=== PATIENT | female | born 1940 | race Hispanic/Latino ===

== ENCOUNTER → 2019-04-06 | Outpatient (CLI) | payer MEDICARE | END | disposition home or self-care (01) | LOC: SHCH 11:26 | PROVIDERS: ATTEND Internal Medicine Cardiovascular Disease | DX: I73.9 Peripheral vascular disease, unspecified (principal) | CPT/HCPCS: 93925 ==

== ENCOUNTER 2019-06-28 10:06 | Emergency (ER) | payer MEDICARE ==
[2019-06-28] MEDS ORDERED: TETANUS/DIPHTHERIA TOXOID [ADULT] 0.5 ML VIAL IM ONE (10:20)
[2019-06-28] MEDS ORDERED: LIDOCAINE 1%-EPI 1:100,000 20 ML VIAL IJ ONE (10:42)
[2019-06-28 10:49] LABS: BASOPHILS % (AUTO) 0.5 % (0.0-5.0); EOSINOPHILS % (AUTO) 1.8 % (0.0-8.0); HEMATOCRIT 36.8 % (36-48); LYMPHOCYTES % (AUTO) 19.5 % (21.0-51.0); MEAN CORPUSCULAR HEMOGLOBIN 27.5 pg (27.0-33.0); MEAN CORPUSCULAR HGB CONC 28.8 g/dL (32.0-36.0); MEAN CORPUSCULAR VOLUME 95.6 fL (79-99); MONOCYTES % (AUTO) 10.1 % (3.0-13.0); NEUTROPHILS % (AUTO) 67.8 % (40.0-77.0); PLATELET COUNT (AUTO) 165 K/uL (130-400); RED BLOOD CELL COUNT(AUTO) 3.85 MIL/uL (4.00-5.50); RED CELL DISTRIBUTION WIDTH 14.1 % (11.0-15.5); WHITE BLOOD COUNT (AUTO) 6.1 K/uL (4.8-10.8)
[2019-06-28] MEDS ORDERED: ACETAMINOPHEN 325 MG TAB ONE (10:53)
[2019-06-28] MEDS ORDERED: L.E.T. GEL 4%/0.5%/0.18% 3ML 3 ML/SYR SYG TP ONE (10:53)
[2019-06-28 11:03] LABS: CREATININE 1.1 mg/dL (0.5-1.5)
== END 2019-06-28 12:55 | disposition home or self-care (01) ==
LOC: EDH 10:06
DX: S01.81XA Laceration without foreign body of other part of head, initial encounter (principal); S43.401A Unspecified sprain of right shoulder joint, initial encounter; E11.9 Type 2 diabetes mellitus without complications; I10 Essential (primary) hypertension; E78.00 Pure hypercholesterolemia, unspecified; Z90.49 Acquired absence of other specified parts of digestive tract; Z90.710 Acquired absence of both cervix and uterus; Z98.890 Other specified postprocedural states; Z88.6 Allergy status to analgesic agent; W18.2XXA Fall in (into) shower or empty bathtub, initial encounter; Y93.01 Activity, walking, marching and hiking; Y92.098 Other place in other non-institutional residence as the place of occurrence of the external cause; Y99.8 Other external cause status
CPT/HCPCS: 12051; 36415; 70450; 72125; 73030; 80048; 85025; 90471; 90714; 93005; 99285; J3490

== ENCOUNTER → 2020-04-07 | Outpatient (CLI) | payer OTHER, MEDICARE | END | disposition home or self-care (01) | LOC: SHCH 12:47 | PROVIDERS: ATTEND Internal Medicine Cardiovascular Disease | DX: I65.23 Occlusion and stenosis of bilateral carotid arteries (principal); R09.89 Other specified symptoms and signs involving the circulatory and respiratory systems | CPT/HCPCS: 93880 ==

== ENCOUNTER → 2020-11-14 | Outpatient (CLI) | payer OTHER, MEDICARE ==
[~2020-11-14] MED LIST: IOHEXOL 350 MG/ML 100ML INFUS..BTL IV ONE
== END | disposition home or self-care (01) ==
LOC: RAH 07:53
PROVIDERS: ATTEND Internal Medicine Cardiovascular Disease
DX: I87.2 Venous insufficiency (chronic) (peripheral) (principal); I73.9 Peripheral vascular disease, unspecified; I87.1 Compression of vein; I51.7 Cardiomegaly; M71.22 Synovial cyst of popliteal space [Baker], left knee; M71.21 Synovial cyst of popliteal space [Baker], right knee; N83.292 Other ovarian cyst, left side
CPT/HCPCS: 75635; Q9967

== ENCOUNTER → 2020-12-14 | Outpatient (CLI) | payer OTHER, MEDICARE | END | disposition home or self-care (01) | LOC: SHCH 12:48 | PROVIDERS: ATTEND Internal Medicine Cardiovascular Disease | DX: I08.8 Other rheumatic multiple valve diseases (principal); E11.9 Type 2 diabetes mellitus without complications; E78.5 Hyperlipidemia, unspecified; E66.9 Obesity, unspecified; R55 Syncope and collapse | CPT/HCPCS: 93306; 93356 ==

== ENCOUNTER 2021-05-18 15:08 | Observation (INO) | payer OTHER, MEDICARE ==
[~2021-05-18] VITALS: Ht 149.9 cm; Wt 83.1 kg
[2021-05-18 16:17] LABS: BASOPHILS % (AUTO) 0.9 % (0.0-5.0); EOSINOPHILS % (AUTO) 1.3 % (0.0-8.0); HEMATOCRIT 30.3 % (36-48); LYMPHOCYTES % (AUTO) 6.3 % (21.0-51.0); MEAN CORPUSCULAR HEMOGLOBIN 29.8 pg (27.0-33.0); MEAN CORPUSCULAR HGB CONC 31.7 g/dL (32.0-36.0); MEAN CORPUSCULAR VOLUME 94.1 fL (79-99); MONOCYTES % (AUTO) 6.7 % (3.0-13.0); NEUTROPHILS % (AUTO) 83.5 % (40.0-77.0); PLATELET COUNT (AUTO) 289 K/uL (130-400); RED BLOOD CELL COUNT(AUTO) 3.22 MIL/uL (4.00-5.50); RED CELL DISTRIBUTION WIDTH 16.3 % (11.0-15.5); WHITE BLOOD COUNT (AUTO) 10.5 K/uL (4.8-10.8)
[2021-05-18 16:30] LABS: INR 1.37 (0.85-1.15); PROTHROMBIN TIME 14.5 SEC (9.6-11.6)
[2021-05-18 16:31] LABS: PARTIAL THROMBOPLASTIN TIME 28.5 SEC (26.3-35.5)
[2021-05-18 16:34] LABS: ALBUMIN 2.5 g/dL (3.5-5.0); BILIRUBIN,TOTAL 1.2 mg/dL (0.2-1.0); CREATININE 1.8 mg/dL (0.5-1.5); TOTAL PROTEIN, SERUM 6.2 g/dL (6.0-8.3)
[2021-05-18 16:42] LABS: POTASSIUM 2.8 mmol/L (3.5-5.1)
[2021-05-18 16:42] LABS: APPEARANCE,URINE Clear (CLEAR); BILIRUBIN,URINE Negative (NEGATIVE); COLOR,URINE Yellow (YELLOW); GLUCOSE, URINE (UA) Negative (NEGATIVE); KETONES,URINE Negative (NEGATIVE); LEUKOCYTE ESTERASE ,URINE Trace (NEGATIVE); NITRATE,URINE Negative (NEGATIVE); OCCULT BLOOD,URINE Negative (NEGATIVE); PROTEIN,URINE Trace mg/dL (NEGATIVE); UROBILINOGEN,URINE 0.2 mg/dL (0.2-1.0)
[2021-05-18] MEDS ORDERED: POTASSIUM BICARB/CIT AC 25 MEQ TABLET.EFF PO ONE (17:00)
[2021-05-18 17:09] LABS: BACTERIA,URINE Few /HPF (None Seen); RBC,URINE 0-1 /HPF (0-1)
[2021-05-18 17:10] LABS: SQUAMOUS EPITHELIAL CELL,UR Rare /HPF (0-2)
[2021-05-18 17:11] LABS: MUCUS,URINE Rare LPF (None Seen)
[2021-05-18] MEDS ORDERED: POTASSIUM BICARB/CIT AC 25 MEQ TABLET.EFF ONE (17:16)
[2021-05-18] MEDS ORDERED: DILTIAZEM 25MG INJ IVP SCH (18:00)
[2021-05-18] MEDS ORDERED: CEFTRIAXONE 1G VIAL IVP ONE (18:00)
[2021-05-18] MEDS ORDERED: AMIO200T68 PO (18:18)
[2021-05-18] MEDS ORDERED: FOLI0.8T3 PO (18:19)
[2021-05-18] MEDS ORDERED: METO-409 PO (18:19)
[2021-05-18] MEDS ORDERED: FOLI0.8T22 PO ×2 (18:19→18:20)
[2021-05-18] MEDS ORDERED: DOCU100T9 PO (18:21)
[2021-05-18] MEDS ORDERED: SERT-438 PO (18:21)
[2021-05-18] MEDS ORDERED: FURO40TA5 PO (18:21)
[2021-05-18] MEDS ORDERED: ROSU10TA28 PO (18:22)
[2021-05-18] MEDS ORDERED: IRON150C5 PO (18:23)
[2021-05-18] MEDS ORDERED: VITAD50000 PO (18:25)
[2021-05-18] MEDS: AMIODARONE 200 MG TABLET PO SCH ×2 (18:30→21:42)
[2021-05-18] MEDS ORDERED: METOPROLOL SUCCINATE 50 MG TAB.SR.24H PO ONE (18:43)
[2021-05-18] MEDS: METOPROLOL SUCCINATE 50 MG TAB.SR.24H PO SCH (18:49)
[2021-05-18] MEDS ORDERED: LIDOCAINE HCL-MPF 1% 2ML VIAL IV PRN (19:30)
[2021-05-18] MEDS ORDERED: POTASSIUM CHLORIDE 10% ELIXIR 20 MEQ/15 ML UDCUP PO PRN (19:30)
[2021-05-18] MEDS ORDERED: ONDANSETRON 4MG INJ IVP PRN (19:30)
[2021-05-18] MEDS ORDERED: POTASSIUM CHLORIDE 20MEQ/100ML 100 ML IV PRN (19:30)
[2021-05-18] MEDS ORDERED: ACETAMINOPHEN 325 MG TAB PO PRN (19:30)
[2021-05-18] MEDS ORDERED: DILTIAZEM 125 MG/25 ML INJ 125 MG in 0.9%NACL 100ML 100 ML IV PRN (20:00)
[2021-05-18 20:40] VITALS: BP 109/76
[2021-05-18] MEDS: KCL 20 MEQ ERTAB PO PRN (21:50)
[2021-05-19] VITALS (7 sets, daily range): BP systolic 106–165; BP diastolic 71–95
[2021-05-19] MEDS: KCL 20 MEQ ERTAB PO PRN ×3 (00:20→09:27)
[2021-05-19 04:52] LABS: BASOPHILS % (AUTO) 1.2 % (0.0-5.0); EOSINOPHILS % (AUTO) 2.6 % (0.0-8.0); HEMATOCRIT 29.8 % (36-48); LYMPHOCYTES % (AUTO) 8.1 % (21.0-51.0); MEAN CORPUSCULAR HEMOGLOBIN 29.4 pg (27.0-33.0); MEAN CORPUSCULAR HGB CONC 31.5 g/dL (32.0-36.0); MEAN CORPUSCULAR VOLUME 93.1 fL (79-99); MONOCYTES % (AUTO) 10.2 % (3.0-13.0); NEUTROPHILS % (AUTO) 76.5 % (40.0-77.0); PLATELET COUNT (AUTO) 250 K/uL (130-400); RED CELL DISTRIBUTION WIDTH 16.5 % (11.0-15.5); WHITE BLOOD COUNT (AUTO) 11.2 K/uL (4.8-10.8)
[2021-05-19 05:14] LABS: ALBUMIN 2.2 g/dL (3.5-5.0); BILIRUBIN,TOTAL 1.2 mg/dL (0.2-1.0); CREATININE 1.7 mg/dL (0.5-1.5); MAGNESIUM 0.8 mg/dL (1.80-2.40); POTASSIUM 3.6 mmol/L (3.5-5.1); TOTAL PROTEIN, SERUM 5.6 g/dL (6.0-8.3)
[2021-05-19] MEDS ORDERED: FURO40TA5 PO (08:02)
[2021-05-19] MEDS ORDERED: FAMO20TA8 PO (08:02)
[2021-05-19] MEDS ORDERED: METOPROLOL SUCCINATE 50 MG TAB.SR.24H PO SCH (09:15)
[2021-05-19] MEDS ORDERED: AMIODARONE 200 MG TABLET PO SCH (09:15)
[2021-05-19] MEDS: ENOXAPARIN SODIUM 30 MG/0.3 ML SQ SCH (09:27)
[2021-05-19] MEDS: FUROSEMIDE 40 MG TABLET PO SCH ×2 (09:27→20:38)
[2021-05-19] MEDS: FOLIC ACID 1 MG TABLET PO SCH (09:28)
[2021-05-19] MEDS: METOPROLOL SUCCINATE 50 MG TAB.SR.24H PO SCH ×2 (09:28→20:38)
[2021-05-19] MEDS: SERTRALINE HCL 50 MG TABLET PO SCH (09:28)
[2021-05-19] MEDS: AMIODARONE 200 MG TABLET PO SCH (09:28)
[2021-05-19] MEDS: Vitamin B Complex/Vit C/Folic Acid PO SCH (09:28)
[2021-05-19] MEDS: DOCUSATE SODIUM 100 MG CAP PO SCH ×2 (09:30→20:39)
[2021-05-19] MEDS ORDERED: FAMOTIDINE 20MG TAB PO PRN (09:30)
[2021-05-19] MEDS: MAGNESIUM 2GM PREMIX 50ML 50 ML IV PRN ×3 (09:31→17:37)
[2021-05-19] MEDS: FAMOTIDINE 20MG TAB PO SCH (12:04)
[2021-05-19] MEDS: DIGOXIN 250 MCG/ML 2ML AMP IV SCH ×2 (14:27→20:40)
[2021-05-19] MEDS: NYSTATIN 15 GM POWDER TP SCH ×2 (17:38→20:40)
[2021-05-19] MEDS ORDERED: CEFTRIAXONE 1G VIAL IVP SCH (18:00)
[2021-05-19] MEDS: ATORVASTATIN 20 MG TABLET PO SCH (20:36)
[2021-05-19] MEDS: IRON POLYSACCHARIDES COMPLEX 150 MG CAPSULE PO SCH (20:37)
[2021-05-19] MEDS: KCL 20 MEQ ERTAB PO SCH (20:38)
[2021-05-19] MEDS: ACETAMINOPHEN 325 MG TAB PO PRN (20:44)
[2021-05-20 02:07] VITALS: BP 121/70
[2021-05-20] MEDS: DIGOXIN 250 MCG/ML 2ML AMP IV SCH ×2 (02:17→14:00)
[2021-05-20] MEDS: ACETAMINOPHEN 325 MG TAB PO PRN ×2 (03:12→14:50)
[2021-05-20 04:02] LABS: HEMATOCRIT 30.2 % (36-48); MEAN CORPUSCULAR HEMOGLOBIN 29.7 pg (27.0-33.0); MEAN CORPUSCULAR HGB CONC 30.8 g/dL (32.0-36.0); MEAN CORPUSCULAR VOLUME 96.5 fL (79-99); PLATELET COUNT (AUTO) 274 K/uL (130-400); RED BLOOD CELL COUNT(AUTO) 3.13 MIL/uL (4.00-5.50); RED CELL DISTRIBUTION WIDTH 16.4 % (11.0-15.5); WHITE BLOOD COUNT (AUTO) 10.4 K/uL (4.8-10.8)
[2021-05-20 04:06] VITALS: BP 141/63
[2021-05-20 04:38] LABS: CREATININE 1.6 mg/dL (0.5-1.5); MAGNESIUM 1.4 mg/dL (1.80-2.40)
[2021-05-20] MEDS: MAGNESIUM 2GM PREMIX 50ML 50 ML IV PRN (05:51)
[2021-05-20] MEDS ORDERED: 0.9% NACL 500ML IV.SOLN 500 ML IV ONE (05:52)
[2021-05-20] MEDS ORDERED: DIGOXIN 125 MCG TABLET PO SCH (06:00)
[2021-05-20 07:00] VITALS: BP 151/55
[2021-05-20] MEDS: DOCUSATE SODIUM 100 MG CAP PO SCH ×2 (09:00→19:37)
[2021-05-20] MEDS: FOLIC ACID 1 MG TABLET PO SCH (09:00)
[2021-05-20] MEDS: METOPROLOL SUCCINATE 50 MG TAB.SR.24H PO SCH ×2 (09:00→19:36)
[2021-05-20] MEDS: SERTRALINE HCL 50 MG TABLET PO SCH (09:00)
[2021-05-20] MEDS: FUROSEMIDE 40 MG TABLET PO SCH ×2 (09:00→19:40)
[2021-05-20] MEDS: FAMOTIDINE 20MG TAB PO SCH (09:00)
[2021-05-20] MEDS: AMIODARONE 200 MG TABLET PO SCH (09:00)
[2021-05-20] MEDS: KCL 20 MEQ ERTAB PO SCH ×2 (09:00→19:36)
[2021-05-20] MEDS: ENOXAPARIN SODIUM 30 MG/0.3 ML SQ SCH (09:00)
[2021-05-20] MEDS: NYSTATIN 15 GM POWDER TP SCH ×2 (09:00→14:45)
[2021-05-20] MEDS: Vitamin B Complex/Vit C/Folic Acid PO SCH (09:00)
[2021-05-20] MEDS ORDERED: FAMO20TA8 PO (09:26)
[2021-05-20] MEDS ORDERED: POTA-192 PO (09:26)
[2021-05-20] MEDS ORDERED: MAGN400T7 PO (09:28)
[2021-05-20] MEDS ORDERED: CEPH500C2 PO (09:28)
[2021-05-20] MEDS ORDERED: DIGO125T71 PO (09:28)
[2021-05-20] MEDS: MAGNESIUM OXIDE 400 MG TABLET PO SCH ×2 (09:30→19:36)
[2021-05-20 11:00] VITALS: BP 156/75
[2021-05-20] MEDS ORDERED: TRIAM15CRM TP (12:41)
[2021-05-20] MEDS: PHARMACY COMMUNICATION MISC SCH ×2 (13:00→17:00)
[2021-05-20] MEDS ORDERED: TRIAMCINOLONE ACETONIDE 0.1% CREAM 15GM TP SCH (14:00)
[2021-05-20] MEDS: CEPHALEXIN 500 MG CAPSULE PO SCH ×2 (14:51→19:40)
[2021-05-20 16:00] VITALS: BP 136/62
[2021-05-20] MEDS ORDERED: MAG/ALUM/SIMETH 30ML 60 ML, LIDOCAINE HCL 2% VISCOUS 60 ML, DIPHENHYDRAMINE HCL 150 MG PO SCH ×3 (17:00)
[2021-05-20] MEDS: IRON POLYSACCHARIDES COMPLEX 150 MG CAPSULE PO SCH (19:36)
[2021-05-20] MEDS: ATORVASTATIN 20 MG TABLET PO SCH (19:36)
[2021-05-26] MEDS ORDERED: ERGOCALCIFEROL (VITAMIN D2) 50,000 UNIT CAPSULE PO SCH (09:00)
== END 2021-05-20 19:45 ==
LOC: EDH 15:08 → INTOOBSV 18:15 → EDHIP 18:15 → 4DH 21:01
PROVIDERS: ADMIT Internal Medicine; ATTEND Internal Medicine
DX: I48.91 Unspecified atrial fibrillation (principal); N39.0 Urinary tract infection, site not specified; I48.20 Chronic atrial fibrillation, unspecified; E87.6 Hypokalemia; L25.9 Unspecified contact dermatitis, unspecified cause; K12.30 Oral mucositis (ulcerative), unspecified; C25.9 Malignant neoplasm of pancreas, unspecified; K83.1 Obstruction of bile duct; I13.0 Hypertensive heart and chronic kidney disease with heart failure and stage 1 through stage 4 chronic kidney disease, or unspecified chronic kidney disease; I50.42 Chronic combined systolic (congestive) and diastolic (congestive) heart failure; N18.31 Chronic kidney disease, stage 3a; D63.1 Anemia in chronic kidney disease; E11.22 Type 2 diabetes mellitus with diabetic chronic kidney disease; E11.42 Type 2 diabetes mellitus with diabetic polyneuropathy; D69.6 Thrombocytopenia, unspecified; E66.9 Obesity, unspecified; E78.5 Hyperlipidemia, unspecified; N25.81 Secondary hyperparathyroidism of renal origin; M19.90 Unspecified osteoarthritis, unspecified site; I70.90 Unspecified atherosclerosis; I27.20 Pulmonary hypertension, unspecified; I35.0 Nonrheumatic aortic (valve) stenosis; I73.9 Peripheral vascular disease, unspecified; I70.0 Atherosclerosis of aorta; I87.2 Venous insufficiency (chronic) (peripheral); I87.309 Chronic venous hypertension (idiopathic) without complications of unspecified lower extremity; I89.0 Lymphedema, not elsewhere classified; N17.9 Acute kidney failure, unspecified; R32 Unspecified urinary incontinence; Z68.37 Body mass index [BMI] 37.0-37.9, adult; Z85.07 Personal history of malignant neoplasm of pancreas; Z85.3 Personal history of malignant neoplasm of breast; Z87.442 Personal history of urinary calculi; Z90.12 Acquired absence of left breast and nipple; Z90.710 Acquired absence of both cervix and uterus; Z99.2 Dependence on renal dialysis; Z79.899 Other long term (current) drug therapy; Z98.890 Other specified postprocedural states; Z98.49 Cataract extraction status, unspecified eye
CPT/HCPCS: 36415 ×3; 71045; 80048; 80053 ×2; 81001; 82550 ×4; 82948 ×7; 83735 ×4; 83874 ×3; 84484 ×4; 85025 ×2; 85027; 85610; 85730; 87040 ×2; 87088; 93005; 96365; 96366 ×3; 96372 ×2; 96375 ×2; 96376; 97039 ×2; 97116; 97161; 99285; G0378 ×34; J0696 ×2; J1160 ×3; J1650 ×2; J3475 ×4; J7040

== ENCOUNTER → 2021-06-08 | Outpatient (CLI) | payer OTHER, MEDICARE ==
[~2021-06-08] MED LIST changes: +AMIO200T68 PO; +CEPH500C2 PO; +DIGO125T71 PO; +DOCU100T9 PO; +FAMO20TA8 PO; +FOLI0.8T22 PO; +FOLI0.8T3 PO; +FURO40TA5 PO; +IRON150C5 PO; +MAGN400T7 PO; +METO-409 PO; +POTA-192 PO; +ROSU10TA28 PO; +SERT-438 PO; +TRIAM15CRM TP; +VITAD50000 PO
== END | disposition home or self-care (01) ==
LOC: OIH 08:34
PROVIDERS: ATTEND Internal Medicine Gastroenterology
DX: N28.1 Cyst of kidney, acquired (principal); K83.1 Obstruction of bile duct; K86.9 Disease of pancreas, unspecified
CPT/HCPCS: 74170; Q9967

== ENCOUNTER → 2021-07-06 | Outpatient (CLI) | payer OTHER, MEDICARE ==
[~2021-07-06] MED LIST changes: -IOHEXOL 350 MG/ML 100ML INFUS..BTL IV ONE
== END | disposition home or self-care (01) ==
LOC: DAH 10:00 → EDSTATUS 07-11 12:55
PROVIDERS: ATTEND Physician Assistant Medical
DX: Z01.812 Encounter for preprocedural laboratory examination (principal); K86.9 Disease of pancreas, unspecified; K83.1 Obstruction of bile duct; Z20.822 Contact with and (suspected) exposure to COVID-19
CPT/HCPCS: 87635; C9803

== ENCOUNTER 2021-08-22 10:07 | Day surgery (SDC) | payer OTHER, MEDICARE ==
[2021-08-22] VITALS (17 sets, daily range): BP systolic 150–180; BP diastolic 73–88
[~2021-08-22 10:07] MED LIST changes: +LACT10SO5 PO
[2021-08-22] MEDS ORDERED: 0.9%NACL 1000ML 1,000 ML IV ONE (10:51)
[2021-08-22] MEDS ORDERED: IOHEXOL-350 50ML VIAL IV ONE (10:51)
[2021-08-22 11:38] LABS: HEMATOCRIT 33.5 % (36-48)
[2021-08-22 11:45] LABS: CREATININE 1.2 mg/dL (0.5-1.5)
[2021-08-22] MEDS ORDERED: PROPOFOL 10 MG/ML 20ML VIAL IV ONE (12:49)
[2021-08-22] MEDS ORDERED: SUCCINYLCHOLINE 200MG/10ML SYR ONE (12:49)
[2021-08-22] MEDS ORDERED: FENTANYL CITRATE PF 50 MCG/1 ML 2ML VIAL ONE (12:50)
[2021-08-22] MEDS ORDERED: ENALAPRILAT DIHYDRATE 1.25MG/ML 1ML VIAL IV ONE (14:08)
[2021-08-22] MEDS ORDERED: RIFA550T PO (14:44)
[2021-08-22] MEDS ORDERED: POTA10TA PO (14:44)
[2021-08-22] MEDS ORDERED: [UNRECOGNIZED DRUG - CODE] (22:53)
[2021-08-22] MEDS ORDERED: IRON150C5 PO (23:02)
[2021-08-22] MEDS ORDERED: DIPH25 PO (23:06)
[2021-08-22] MEDS ORDERED: DOCU-116 PO (23:06)
[2021-08-23] MEDS ORDERED: FURO40TA5 PO ×2 (08:40→09:23)
[2021-08-23] MEDS ORDERED: RIFA550T PO (09:23)
== END 2021-08-22 15:05 | disposition home or self-care (01) ==
LOC: ENDO 10:07 → DAH 10:07 → ENDO 15:05
PROVIDERS: ATTEND Internal Medicine Gastroenterology
DX: Z46.59 Encounter for fitting and adjustment of other gastrointestinal appliance and device (principal); R17 Unspecified jaundice; Z20.822 Contact with and (suspected) exposure to COVID-19; K83.1 Obstruction of bile duct; I11.0 Hypertensive heart disease with heart failure; E11.9 Type 2 diabetes mellitus without complications; F41.9 Anxiety disorder, unspecified; D64.9 Anemia, unspecified; E78.5 Hyperlipidemia, unspecified; F32.9 Major depressive disorder, single episode, unspecified; M19.90 Unspecified osteoarthritis, unspecified site; I50.22 Chronic systolic (congestive) heart failure; I48.20 Chronic atrial fibrillation, unspecified; Z79.899 Other long term (current) drug therapy; Z98.890 Other specified postprocedural states; Z99.2 Dependence on renal dialysis; Z90.710 Acquired absence of both cervix and uterus; Z98.49 Cataract extraction status, unspecified eye; Z90.12 Acquired absence of left breast and nipple; Z80.0 Family history of malignant neoplasm of digestive organs
CPT/HCPCS: 36415; 43276; 74330; 80048; 82948 ×2; 85014; 85018; 87635; A4215 ×2; A4221; A4222; A4223; A4606; A4663; C1769; C1876; C9803; J0330; J2704; J3010; J3490; J7030; Q9967

== ENCOUNTER 2021-10-08 13:26 | Inpatient (IN) | payer OTHER, MEDICARE ==
[~2021-10-08] VITALS: Ht 144.8 cm; Wt 64.8 kg
[~2021-10-08 13:26] MED LIST changes: -CEPH500C2 PO; -DIGO125T71 PO; -DOCU100T9 PO; +EPINEPHRINE 1MG SYG 10ML IVP ONE; -FOLI0.8T22 PO; +RIFA550T PO; -SERT-438 PO; -TRIAM15CRM TP; +[UNRECOGNIZED DRUG - CODE]
[2021-10-08 13:49] LABS: BASOPHILS % (AUTO) 0.5 % (0.0-5.0); HEMATOCRIT 32.1 % (36-48); LYMPHOCYTES % (AUTO) 8.1 % (21.0-51.0); MEAN CORPUSCULAR HEMOGLOBIN 29.2 pg (27.0-33.0); MEAN CORPUSCULAR VOLUME 88.4 fL (79-99); NEUTROPHILS % (AUTO) 87.4 % (40.0-77.0); PLATELET COUNT (AUTO) 129 K/uL (130-400); RED BLOOD CELL COUNT(AUTO) 3.63 MIL/uL (4.00-5.50)
[2021-10-08] MEDS ORDERED: 0.9% NACL 500ML IV.SOLN 500 ML IV ONE ×2 (13:51→14:00)
[2021-10-08 13:56] LABS: CREATININE 1.8 mg/dL (0.5-1.5); POTASSIUM 4.8 mmol/L (3.5-5.1)
[2021-10-08 14:01] LABS: ALBUMIN 2.1 g/dL (3.5-5.0); BILIRUBIN,TOTAL 0.9 mg/dL (0.2-1.0); TOTAL PROTEIN, SERUM 4.7 g/dL (6.0-8.3)
[2021-10-08] MEDS ORDERED: MORPHINE 2 MG SYG IVP ONE (14:30)
[2021-10-08] MEDS ORDERED: 0.9%NACL 1000ML 1,000 ML IV ONE (14:30)
[2021-10-08] MEDS ORDERED: ONDANSETRON 4MG INJ IVP ONE (14:30)
[2021-10-08 15:19] LABS: APPEARANCE,URINE SL CLOUDY (CLEAR); BILIRUBIN,URINE SMALL (NEGATIVE); COLOR,URINE YELLOW (YELLOW); GLUCOSE, URINE (UA) NEGATIVE (NEGATIVE); KETONES,URINE 5 mg/dL (NEGATIVE); LEUKOCYTE ESTERASE ,URINE SMALL (NEGATIVE); NITRATE,URINE NEGATIVE (NEGATIVE); OCCULT BLOOD,URINE MODERATE (NEGATIVE); PROTEIN,URINE TRACE mg/dL (NEGATIVE); UROBILINOGEN,URINE 0.2 mg/dL (0.2-1.0)
[2021-10-08 15:30] LABS: BACTERIA,URINE Few /HPF (None Seen); MUCUS,URINE Moderate LPF (None Seen); SQUAMOUS EPITHELIAL CELL,UR Moderate /HPF (0-2)
[2021-10-08] MEDS ORDERED: CEFTRIAXONE 1G VIAL IVP ONE (16:30)
[2021-10-08] MEDS ORDERED: CEFTRIAXONE 1G VIAL ONE (16:33)
[2021-10-08] MEDS: 0.9%NACL 1000ML 1,000 ML IV SCH (20:34)
[2021-10-08 21:15] VITALS: BP 93/44
[2021-10-08] MEDS ORDERED: LIDOCAINE HCL-MPF 1% 2ML VIAL IV PRN (22:00)
[2021-10-08] MEDS ORDERED: KCL 20 MEQ ERTAB PO PRN (22:00)
[2021-10-08] MEDS ORDERED: POTASSIUM CHLORIDE 20MEQ/100ML 100 ML IV PRN (22:00)
[2021-10-08] MEDS ORDERED: POTASSIUM CHLORIDE 10% ELIXIR 20 MEQ/15 ML UDCUP PO PRN (22:00)
[2021-10-08] MEDS ORDERED: DOCU-280 PO ×2 (22:09)
[2021-10-08] MEDS ORDERED: FURO40TA5 PO (22:09)
[2021-10-08] MEDS ORDERED: FAMO20TA8 PO (22:09)
[2021-10-08] MEDS ORDERED: DIPH25 PO (22:09)
[2021-10-08] MEDS ORDERED: ACET-2743 PO (22:09)
[2021-10-08] MEDS ORDERED: TRAM50TA4 PO (22:09)
[2021-10-08] MEDS ORDERED: CAPE500 PO (22:09)
[2021-10-08] MEDS ORDERED: BACL10TA PO (22:09)
[2021-10-08] MEDS ORDERED: MAGN400T40 PO (22:09)
[2021-10-08] MEDS ORDERED: RIFA550T PO (22:09)
[2021-10-09] VITALS (7 sets, daily range): BP systolic 92–134; BP diastolic 43–73
[2021-10-09] MEDS: 0.9%NACL 1000ML 1,000 ML IV SCH ×2 (05:11→16:22)
[2021-10-09] MEDS: XELODA 1500 MG PO SCH ×2 (08:35→21:00)
[2021-10-09] MEDS ORDERED: VITAD50000 PO (08:55)
[2021-10-09] MEDS ORDERED: ROSU10TA28 PO (08:55)
[2021-10-09] MEDS ORDERED: AMIO200T68 PO (08:55)
[2021-10-09] MEDS ORDERED: LACT10SO32 PO (08:55)
[2021-10-09] MEDS ORDERED: METO-409 PO (08:55)
[2021-10-09] MEDS ORDERED: CEFTRIAXONE 1G VIAL IVP SCH (09:00)
[2021-10-09] MEDS ORDERED: ONDANSETRON 4MG INJ IV PRN (09:30)
[2021-10-09] MEDS ORDERED: DIPHENHYDRAMINE HCL 25 MG CAPSULE PO PRN (09:30)
[2021-10-09] MEDS ORDERED: ACETAMINOPHEN 325 MG TAB PO PRN ×2 (09:30)
[2021-10-09 09:42] LABS: HEMATOCRIT 24.9 % (36-48); MEAN CORPUSCULAR HEMOGLOBIN 29.9 pg (27.0-33.0); MEAN CORPUSCULAR HGB CONC 33.7 g/dL (32.0-36.0); MEAN CORPUSCULAR VOLUME 88.6 fL (79-99); PLATELET COUNT (AUTO) 68 K/uL (130-400); RED BLOOD CELL COUNT(AUTO) 2.81 MIL/uL (4.00-5.50); RED CELL DISTRIBUTION WIDTH 16.1 % (11.0-15.5); WHITE BLOOD COUNT (AUTO) 1.3 K/uL (4.8-10.8)
[2021-10-09 09:58] LABS: ALBUMIN 1.6 g/dL (3.5-5.0); BILIRUBIN,TOTAL 0.4 mg/dL (0.2-1.0); CREATININE 1.5 mg/dL (0.5-1.5); POTASSIUM 3.3 mmol/L (3.5-5.1); TOTAL PROTEIN, SERUM 3.7 g/dL (6.0-8.3)
[2021-10-09] MEDS: FOLIC ACID 1 MG TABLET PO SCH (10:39)
[2021-10-09] MEDS: IRON POLYSACCHARIDES COMPLEX 150 MG CAPSULE PO SCH ×2 (10:40→21:04)
[2021-10-09] MEDS: AMIODARONE 200 MG TABLET PO SCH (10:40)
[2021-10-09] MEDS ORDERED: POTASSIUM CHLORIDE 20 MEQ/100 ML BAG IV SCH (11:00)
[2021-10-09] MEDS ORDERED: MAG/AL/SIMETH 30 ML+LIDO2% VISC+DIPHEN 75MG 30ML PO PRN ×3 (11:00)
[2021-10-09] MEDS ORDERED: COMPOUND PO MISCELLANEOUS 1 EACH MISC MISC PRN (11:00)
[2021-10-09] MEDS ORDERED: LIDOCAINE HCL 2% VISCOUS 15 ML UDCUP PO PRN (11:00)
[2021-10-09] MEDS: LIDO 2% VISC 30ML+MAG/AL/SIMETH 30ML+DICYCLOMINE 20MG 10ML PO PRN ×6 (11:44→16:23)
[2021-10-09] MEDS: ZINC OXIDE OINT 60GM TUBE TP SCH ×3 (12:27→23:06)
[2021-10-09] MEDS: LOPERAMIDE 1 MG/7.5 ML UDCUP PO PRN ×2 (12:28→23:03)
[2021-10-09] MEDS: METRONIDAZOLE 500 MG TABLET PO SCH (17:51)
[2021-10-09] MEDS: FAMOTIDINE 20MG TAB PO SCH (21:04)
[2021-10-09] MEDS: METOPROLOL TARTRATE 50 MG TAB PO SCH (21:04)
[2021-10-10] MEDS ORDERED: GLUCAGON 1MG KIT 1 MG ML IM PRN (02:00)
[2021-10-10] MEDS ORDERED: DEXTROSE 50%-WATER 50 ML DISP.SYRIN IV PRN (02:00)
[2021-10-10] MEDS: METRONIDAZOLE 500 MG TABLET PO SCH ×3 (02:12→17:22)
[2021-10-10] MEDS: 0.9%NACL 1000ML 1,000 ML IV SCH ×2 (02:14→17:23)
[2021-10-10 04:00] VITALS: BP 120/55
[2021-10-10 05:16] LABS: HEMATOCRIT 23.5 % (36-48); MEAN CORPUSCULAR HEMOGLOBIN 29.3 pg (27.0-33.0); MEAN CORPUSCULAR HGB CONC 33.2 g/dL (32.0-36.0); MEAN CORPUSCULAR VOLUME 88.3 fL (79-99); RED BLOOD CELL COUNT(AUTO) 2.66 MIL/uL (4.00-5.50); RED CELL DISTRIBUTION WIDTH 16.2 % (11.0-15.5)
[2021-10-10 05:41] LABS: CREATININE 1.2 mg/dL (0.5-1.5); POTASSIUM 3.2 mmol/L (3.5-5.1)
[2021-10-10 05:55] LABS: WHITE BLOOD COUNT (AUTO) 0.6 K/uL (4.8-10.8)
[2021-10-10] MEDS: INSULIN HUMULIN R 100 UNIT/ML 3ML SQ SCH ×4 (07:30→20:59)
[2021-10-10 08:00] VITALS: BP 96/56
[2021-10-10] MEDS: LIDO 2% VISC 30ML+MAG/AL/SIMETH 30ML+DICYCLOMINE 20MG 10ML PO PRN ×3 (08:47)
[2021-10-10] MEDS: FOLIC ACID 1 MG TABLET PO SCH (08:50)
[2021-10-10] MEDS: PANTOPRAZOLE 40 MG TAB DR PO SCH (08:50)
[2021-10-10] MEDS: AMIODARONE 200 MG TABLET PO SCH (08:50)
[2021-10-10] MEDS: KCL 20 MEQ ERTAB PO SCH ×3 (08:53→22:12)
[2021-10-10] MEDS: ZINC OXIDE OINT 60GM TUBE TP SCH ×3 (08:56→21:00)
[2021-10-10] MEDS: IRON POLYSACCHARIDES COMPLEX 150 MG CAPSULE PO SCH ×2 (08:57→21:00)
[2021-10-10] MEDS: XELODA 1500 MG PO SCH ×2 (08:58→21:00)
[2021-10-10] MEDS: METOPROLOL TARTRATE 50 MG TAB PO SCH ×2 (09:00→22:13)
[2021-10-10] MEDS: ONDANSETRON 4MG INJ IVP PRN (10:06)
[2021-10-10 12:00] VITALS: BP 105/57
[2021-10-10 16:00] VITALS: BP 116/53
[2021-10-10 20:00] VITALS: BP 121/67
[2021-10-10] MEDS: FAMOTIDINE 20MG TAB PO SCH (22:13)
[2021-10-11] VITALS: BP 124/67
[2021-10-11] MEDS: METRONIDAZOLE 500 MG TABLET PO SCH ×3 (01:00→18:12)
[2021-10-11] MEDS: COMPOUND PO MISCELLANEOUS 1 EACH MISC MISC SCH ×5 (01:00→21:00)
[2021-10-11] MEDS: LIDOCAINE HCL 2% VISCOUS 30 ML, MAG/ALUM/SIMETH 30ML 30 ML, DICYCLOMINE HCL 20 MG PO SCH ×15 (01:38→22:30)
[2021-10-11 03:48] VITALS: BP 131/67
[2021-10-11 04:08] LABS: CREATININE 1.2 mg/dL (0.5-1.5); POTASSIUM 3.4 mmol/L (3.5-5.1)
[2021-10-11 04:17] LABS: HEMATOCRIT 24.7 % (36-48); MEAN CORPUSCULAR HEMOGLOBIN 29.2 pg (27.0-33.0); MEAN CORPUSCULAR HGB CONC 32.4 g/dL (32.0-36.0); MEAN CORPUSCULAR VOLUME 90.1 fL (79-99); RED BLOOD CELL COUNT(AUTO) 2.74 MIL/uL (4.00-5.50); RED CELL DISTRIBUTION WIDTH 16.6 % (11.0-15.5)
[2021-10-11 04:37] LABS: WHITE BLOOD COUNT (AUTO) 0.2 K/uL (4.8-10.8)
[2021-10-11] MEDS: INSULIN HUMULIN R 100 UNIT/ML 3ML SQ SCH ×4 (06:13→21:00)
[2021-10-11] MEDS: 0.9%NACL 1000ML 1,000 ML IV SCH (06:41)
[2021-10-11 07:00] VITALS: BP 101/49
[2021-10-11] MEDS: ZINC OXIDE OINT 60GM TUBE TP SCH ×4 (09:00→22:19)
[2021-10-11] MEDS: FOLIC ACID 1 MG TABLET PO SCH (09:00)
[2021-10-11] MEDS: KCL 20 MEQ ERTAB PO SCH ×3 (09:00→22:14)
[2021-10-11] MEDS: PANTOPRAZOLE 40 MG TAB DR PO SCH (09:00)
[2021-10-11] MEDS: IRON POLYSACCHARIDES COMPLEX 150 MG CAPSULE PO SCH ×2 (09:00→21:00)
[2021-10-11] MEDS: METOPROLOL TARTRATE 50 MG TAB PO SCH (09:15)
[2021-10-11] MEDS: AMIODARONE 200 MG TABLET PO SCH ×3 (09:15→22:15)
[2021-10-11] MEDS ORDERED: ACETAMINOPHEN WITH CODEINE 1 TAB TAB PO PRN (10:00)
[2021-10-11 10:22] LABS: INR 1.74 (0.85-1.15)
[2021-10-11 10:24] LABS: PARTIAL THROMBOPLASTIN TIME 32.1 SEC (26.3-35.5)
[2021-10-11 11:00] VITALS: BP 98/57
[2021-10-11 15:05] VITALS: BP 110/59
[2021-10-11] MEDS ORDERED: METOPROLOL SUCCINATE 50 MG TAB.SR.24H PO SCH ×3 (17:30→21:00)
[2021-10-11] MEDS ORDERED: METOPROLOL TARTRATE 50 MG TAB ONE (18:00)
[2021-10-11] MEDS ORDERED: AMIODARONE 200 MG TABLET PO ONE (18:30)
[2021-10-11 19:00] VITALS: BP 105/69
[2021-10-11] MEDS ORDERED: TBO-FILGRASTIM 480 MCG/0.8 ML ML SQ SCH (21:00)
[2021-10-11] MEDS: FAMOTIDINE 20MG TAB PO SCH (22:12)
[2021-10-12] VITALS (7 sets, daily range): BP systolic 89–120; BP diastolic 48–83
[2021-10-12] MEDS: METRONIDAZOLE 500 MG TABLET PO SCH ×3 (01:56→17:30)
[2021-10-12] MEDS: 0.9%NACL 1000ML 1,000 ML IV SCH ×2 (02:41→16:47)
[2021-10-12 05:07] LABS: HEMATOCRIT 27.6 % (36-48); MEAN CORPUSCULAR VOLUME 91.1 fL (79-99); RED BLOOD CELL COUNT(AUTO) 3.03 MIL/uL (4.00-5.50); RED CELL DISTRIBUTION WIDTH 16.6 % (11.0-15.5)
[2021-10-12 05:09] LABS: WHITE BLOOD COUNT (AUTO) 0.1 K/uL (4.8-10.8)
[2021-10-12 05:35] LABS: CREATININE 1.6 mg/dL (0.5-1.5); POTASSIUM 3.8 mmol/L (3.5-5.1)
[2021-10-12] MEDS: INSULIN HUMULIN R 100 UNIT/ML 3ML SQ SCH ×4 (07:00→16:30)
[2021-10-12] MEDS: METOPROLOL SUCCINATE 50 MG TAB.SR.24H PO SCH ×2 (08:00→20:47)
[2021-10-12] MEDS ORDERED: ONDANSETRON 4MG TABLET PO PRN (08:30)
[2021-10-12] MEDS: COMPOUND PO MISCELLANEOUS 1 EACH MISC MISC SCH ×3 (09:00→16:25)
[2021-10-12] MEDS ORDERED: METOPROLOL SUCCINATE 50 MG TAB.SR.24H PO SCH (09:00)
[2021-10-12] MEDS: FOLIC ACID 1 MG TABLET PO SCH (09:18)
[2021-10-12] MEDS: PANTOPRAZOLE 40 MG TAB DR PO SCH (09:18)
[2021-10-12] MEDS: KCL 20 MEQ ERTAB PO SCH ×2 (09:19→14:00)
[2021-10-12] MEDS: AMIODARONE 200 MG TABLET PO SCH ×2 (09:20→20:47)
[2021-10-12] MEDS: LIDOCAINE HCL 2% VISCOUS 30 ML, MAG/ALUM/SIMETH 30ML 30 ML, DICYCLOMINE HCL 20 MG PO SCH ×9 (09:21→16:24)
[2021-10-12] MEDS: ZINC OXIDE OINT 60GM TUBE TP SCH ×3 (09:36→16:25)
[2021-10-12] MEDS: IRON POLYSACCHARIDES COMPLEX 150 MG CAPSULE PO SCH (10:10)
[2021-10-12] MEDS: METOCLOPRAMIDE 5 MG TABLET PO SCH ×2 (11:30→12:09)
[2021-10-12] MEDS: METOCLOPRAMIDE 10 MG/2 ML VIAL IVP SCH ×2 (11:41→19:47)
[2021-10-12] MEDS: ONDANSETRON 4MG INJ IVP PRN (14:59)
[2021-10-12] MEDS: ZOSYN 3.375GM +NS 50ML IV SCH (16:47)
[2021-10-12] MEDS ORDERED: 0.9% NACL 250ML IV SCH (17:00)
[2021-10-12] MEDS ORDERED: VANCOMYCIN 1G VIAL IVPB SCH (17:00)
[2021-10-12] MEDS ORDERED: VANCOMYCIN 1.5GM/NS 250ML IV ONE ×2 (18:00)
[2021-10-12] MEDS ORDERED: DiphenhydrAMINE HCL 50 MG/ML VIAL IV ONE (21:30)
[2021-10-12] MEDS ORDERED: DEXAMETHASONE SOD PHOSPHATE 4 MG/ML 1ML VIAL IVP ONE (21:30)
[2021-10-13] VITALS (45 sets, daily range): BP systolic 72–183; BP diastolic 42–127
[2021-10-13 01:06] LABS: ABG BASE EXCESS -7.4 mmol/L (-2.0-3.0); ABG HCO3 17.3 mmol/L (21.0-28.0); ABG OXYGEN SATURATION 93.5 % (95.0-99.0); ABG PCO2 32 mmHg (32-45)
[2021-10-13] MEDS: METRONIDAZOLE 500 MG TABLET PO SCH ×3 (01:30→17:48)
[2021-10-13] MEDS ORDERED: FUROSEMIDE 20MG VIAL IV ONE (02:30)
[2021-10-13] MEDS ORDERED: PHENYLEPHRINE HCL 100 MG in 0.9% NACL 250ML 250 ML IV SCH (03:00)
[2021-10-13] MEDS ORDERED: PHENYLEPHRINE HCL 10 MG in 0.9% NACL 250ML 250 ML IV SCH (03:30)
[2021-10-13] MEDS: ZOSYN 3.375GM +NS 50ML IV SCH ×2 (05:00→12:32)
[2021-10-13] MEDS: METOCLOPRAMIDE 10 MG/2 ML VIAL IVP SCH ×4 (06:00→18:00)
[2021-10-13] MEDS: INSULIN HUMULIN R 100 UNIT/ML 3ML SQ SCH ×4 (06:52→21:00)
[2021-10-13 07:13] LABS: HEMATOCRIT 32.3 % (36-48); MEAN CORPUSCULAR HEMOGLOBIN 30.2 pg (27.0-33.0); MEAN CORPUSCULAR HGB CONC 34.1 g/dL (32.0-36.0); MEAN CORPUSCULAR VOLUME 88.7 fL (79-99); RED BLOOD CELL COUNT(AUTO) 3.64 MIL/uL (4.00-5.50)
[2021-10-13 07:25] LABS: INR 2.92 (0.85-1.15); PROTHROMBIN TIME 28.9 SEC (9.6-11.6)
[2021-10-13 07:26] LABS: PARTIAL THROMBOPLASTIN TIME 37.9 SEC (26.3-35.5)
[2021-10-13 08:04] LABS: WHITE BLOOD COUNT (AUTO) 0.1 K/uL (4.8-10.8)
[2021-10-13 08:46] LABS: ALBUMIN 1.6 g/dL (3.5-5.0); ASPARTATE AMINOTRANSFERASE 15 U/L (10-37); BILIRUBIN,DIRECT 0.5 mg/dL (0.0-0.3); BILIRUBIN,TOTAL 1.8 mg/dL (0.2-1.0); CARBON DIOXIDE 18 mmol/L (21-32); CHLORIDE 107 mmol/L (101-111); CREATININE 2.5 mg/dL (0.5-1.5); GLOMERULAR FILTR. RATE CALC 20 mL/min (>60); GLUCOSE,RANDOM 107 mg/dL (70-105); POTASSIUM 4.3 mmol/L (3.5-5.1); SODIUM SERUM 137 mmol/L (136-145); TOTAL PROTEIN, SERUM 4.4 g/dL (6.0-8.3); UREA NITROGEN, BLOOD 31 mg/dL (7-18)
[2021-10-13 08:47] LABS: ALANINE AMINOTRANSFERASE < 6 U/L (12-78)
[2021-10-13] MEDS: IRON POLYSACCHARIDES COMPLEX 150 MG CAPSULE PO SCH ×2 (09:00→20:08)
[2021-10-13] MEDS: LIDOCAINE HCL 2% VISCOUS 30 ML, MAG/ALUM/SIMETH 30ML 30 ML, DICYCLOMINE HCL 20 MG PO SCH ×6 (09:00→20:04)
[2021-10-13] MEDS: KCL 20 MEQ ERTAB PO SCH ×3 (09:00→20:07)
[2021-10-13] MEDS: AMIODARONE 200 MG TABLET PO SCH ×2 (10:28→20:03)
[2021-10-13] MEDS ORDERED: FUROSEMIDE 40MG VIAL IV SCH (10:30)
[2021-10-13] MEDS: FOLIC ACID 1 MG TABLET PO SCH (10:31)
[2021-10-13] MEDS: PANTOPRAZOLE 40 MG TAB DR PO SCH (10:31)
[2021-10-13] MEDS ORDERED: IPRATROPIUM 0.5 MG/2.5 ML INH IH ONE (11:09)
[2021-10-13] MEDS: IPRATROPIUM 0.5 MG/2.5 ML INH IH SCH ×2 (12:00→18:45)
[2021-10-13] MEDS ORDERED: 0.9%NACL 1000ML 1,000 ML IV ONE (13:10)
[2021-10-13] MEDS ORDERED: LIDOCAINE HCL 400MG/20ML VIAL ONE (14:15)
[2021-10-13] MEDS ORDERED: HEPARIN 1,000 UNIT VIAL ONE (14:15)
[2021-10-13] MEDS: 0.9%NACL 1000ML 1,000 ML IV SCH ×2 (14:30→23:57)
[2021-10-13] MEDS ORDERED: PHARMACY COMMUNICATION MISC SCH (15:30)
[2021-10-13] MEDS ORDERED: COMPOUND PO MISCELLANEOUS 1 EACH MISC MISC PRN (16:00)
[2021-10-13] MEDS ORDERED: CEFEPIME HCL 1 GM VIAL IVP SCH (16:00)
[2021-10-13] MEDS: VANCOMYCIN 250MG/5ML ORAL SOLUTION 40ML PO SCH ×4 (17:48→23:59)
[2021-10-13] MEDS ORDERED: TBO-FILGRASTIM 300 MCG/0.5 ML ML SQ SCH (18:00)
[2021-10-13 19:48] LABS: CREATININE,URINE RANDOM 86 mg/dL (30-135); SODIUM,URINE RANDOM 18 mmol/l (40-220)
[2021-10-13] MEDS: FAMOTIDINE 20MG TAB PO SCH (20:02)
[2021-10-13] MEDS: ZINC OXIDE OINT 60GM TUBE TP SCH (20:04)
[2021-10-13] MEDS: COMPOUND PO MISCELLANEOUS 1 EACH MISC MISC SCH (20:09)
[2021-10-13] MEDS: PHENYLEPHRINE HCL 50 MG/NS 250ML IV PRN ×2 (20:50)
[2021-10-14] MEDS: METOCLOPRAMIDE 10 MG/2 ML VIAL IVP SCH (00:01)
[2021-10-14] MEDS: IPRATROPIUM 0.5 MG/2.5 ML INH IH SCH (00:01)
[2021-10-14 00:14] VITALS: BP 136/74
[2021-10-14] MEDS: PHENYLEPHRINE HCL 50 MG/NS 250ML IV PRN ×2 (00:57)
[2021-10-14 01:31] VITALS: BP 135/115
[2021-10-14] MEDS ORDERED: VANCOMYCIN 1G/250ML KIT 250 ML IV SCH (12:00)
== END 2021-10-14 04:34 | DRG 871 ==
LOC: EDH 13:26 → EDHIP 16:30 → OBSVTOIN 16:30 → 3CH 21:13 → 2CH 10-12 23:33
PROVIDERS: ADMIT Internal Medicine; ATTEND Internal Medicine
PROC: 30233N1 Transfusion of Nonautologous Red Blood Cells into Peripheral Vein, Percutaneous Approach (ICD-10-PCS; 2021-10-12)
PROC: 30233R1 Transfusion of Nonautologous Platelets into Peripheral Vein, Percutaneous Approach (ICD-10-PCS; 2021-10-12)
PROC: 02HV33Z Insertion of Infusion Device into Superior Vena Cava, Percutaneous Approach (ICD-10-PCS; principal; 2021-10-13)
PROC: B548ZZA Ultrasonography of Superior Vena Cava, Guidance (ICD-10-PCS; 2021-10-13)
PROC: 5A12012 Performance of Cardiac Output, Single, Manual (ICD-10-PCS; 2021-10-13)
DX: A41.9 Sepsis, unspecified organism (principal); D61.810 Antineoplastic chemotherapy induced pancytopenia; R65.21 Severe sepsis with septic shock; E43 Unspecified severe protein-calorie malnutrition; A04.72 Enterocolitis due to Clostridium difficile, not specified as recurrent; I13.0 Hypertensive heart and chronic kidney disease with heart failure and stage 1 through stage 4 chronic kidney disease, or unspecified chronic kidney disease; E87.1 Hypo-osmolality and hyponatremia; I50.32 Chronic diastolic (congestive) heart failure; I48.19 Other persistent atrial fibrillation; N18.4 Chronic kidney disease, stage 4 (severe); N17.9 Acute kidney failure, unspecified; C25.9 Malignant neoplasm of pancreas, unspecified; C25.3 Malignant neoplasm of pancreatic duct; D84.821 Immunodeficiency due to drugs; D84.81 Immunodeficiency due to conditions classified elsewhere; N39.0 Urinary tract infection, site not specified; N25.81 Secondary hyperparathyroidism of renal origin; E11.22 Type 2 diabetes mellitus with diabetic chronic kidney disease; E11.65 Type 2 diabetes mellitus with hyperglycemia; F03.90 Unspecified dementia, unspecified severity, without behavioral disturbance, psychotic disturbance, mood disturbance, and anxiety; I35.0 Nonrheumatic aortic (valve) stenosis; R32 Unspecified urinary incontinence; E86.0 Dehydration; K72.90 Hepatic failure, unspecified without coma; I27.20 Pulmonary hypertension, unspecified; D50.9 Iron deficiency anemia, unspecified; E55.9 Vitamin D deficiency, unspecified; I25.10 Atherosclerotic heart disease of native coronary artery without angina pectoris; L98.429 Non-pressure chronic ulcer of back with unspecified severity; I70.0 Atherosclerosis of aorta; B95.61 Methicillin susceptible Staphylococcus aureus infection as the cause of diseases classified elsewhere; M19.90 Unspecified osteoarthritis, unspecified site; B96.1 Klebsiella pneumoniae [K. pneumoniae] as the cause of diseases classified elsewhere; D63.1 Anemia in chronic kidney disease; K12.30 Oral mucositis (ulcerative), unspecified; K74.60 Unspecified cirrhosis of liver; D70.1 Agranulocytosis secondary to cancer chemotherapy; T45.1X5A Adverse effect of antineoplastic and immunosuppressive drugs, initial encounter; Z51.5 Encounter for palliative care; E78.2 Mixed hyperlipidemia; E78.00 Pure hypercholesterolemia, unspecified; Z66 Do not resuscitate; Z74.01 Bed confinement status; Z68.30 Body mass index [BMI] 30.0-30.9, adult; Z79.899 Other long term (current) drug therapy; Z90.12 Acquired absence of left breast and nipple; Z90.710 Acquired absence of both cervix and uterus; Z88.8 Allergy status to other drugs, medicaments and biological substances; Z85.3 Personal history of malignant neoplasm of breast; Z83.3 Family history of diabetes mellitus; Z80.0 Family history of malignant neoplasm of digestive organs; Z82.49 Family history of ischemic heart disease and other diseases of the circulatory system; Y92.89 Other specified places as the place of occurrence of the external cause
CPT/HCPCS: 36415; 36430; 36600; 71045; 76770; 80048; 80053; 80076; 81001; 82140; 82435; 82570; 82803; 82947; 82948; 83605; 83630; 83690; 83735; 83880; 84132; 84145; 84295; 84300; 85018; 85025; 85027; 85610; 85730; 86850; 86900; 86901; 86923; 87040; 87077; 87088; 87186; 87324; 92950; 93005; 94640; 94664; 94667; 97039; C1894; G0378; J0171; J0692; J0696; J1100; J1200; J1644; J1940; J2370; J2405; J2543; J2765; J3370; J3480; J3490; J7030; J7040; J7050; J7070; P9016; P9034